=== PATIENT | female | born 1980 | race Caucasian/White ===

== ENCOUNTER 2019-01-23 05:53 | Day surgery (SDC) | payer OTHER ==
[2019-01-23] MEDS ORDERED: FENTAnyl 50 MCG/ML VIAL (08:12)
[2019-01-23] MEDS ORDERED: MIDAZOLAM 1 MG/ML 2 ML INJ (08:12)
== END 2019-01-23 11:13 | disposition home or self-care (01) ==
LOC: GIL 05:53
DX: K29.50 Unspecified chronic gastritis without bleeding (principal); K44.9 Diaphragmatic hernia without obstruction or gangrene; K21.9 Gastro-esophageal reflux disease without esophagitis
CPT/HCPCS: 43239; 84703; 88305; 88312